=== PATIENT | male | born 1980 | race Two or more races ===

== ENCOUNTER 2025-06-19 21:48 | Emergency (ER) | payer MEDICAID, OTHER ==
[~2025-06-19] VITALS: Ht 167.6 cm; Wt 88.6 kg
[2025-06-19 21:50] VITALS: BP 129/92; PULSE 78; RESP 16; TEMP 98.9; O2SAT 99
--- NOTE | 2025-06-19 22:07 | ED.PDOC ---
Eye-HPI HPI Comments PT PRESENTED TO ED CC LEFT EYE BLEEDING. PT STATES HE WOKE UP LIKE THIS IN THE AM. PT DENIES CHAGES IN VISION, NO PAIN, NO TRAUMA. PT A&OX4, GCS 15, AMBULATORY ON HIS OWN. PMH: DENIES Chief Complaint: Eye Problem Time Seen by MD: 22:00 Reviewed Notes: Nurses Notes, Medications, Allergies Allergies: Coded Allergies: NO KNOWN ALLERGIES (Unverified , 06/19/25) Information Source: Patient Mode of Arrival: Ambulatory Past Medical History PAST MEDICAL HISTORY: Denies Surgical History: Denies all surgeries Family History Family History: Reviewed,noncontributory to illness Social History Smoker: Non-Smoker Alcohol: Denies ETOH Use Drugs: Denies Drug Use All Other Systems: Reviewed and Negative (see hpi ) Physical Exam General Appearance: No Apparent Distress, Normal HEENT: Pharynx Normal, TMs Normal, Other (Subconjunctival hemorrhage left eye right corner. ) Neck: Full Range of Motion, Non-Tender Respiratory: Lungs Clear, No Respiratory Distress, Normal Breath Sounds Cardiovascular: No Murmur, Normal Peripheral Pulses, Regular Rate/Rhythm Breast Exam: Deferred Gastrointestinal: Non Tender, Soft Genitalia: Deferred Pelvic: Deferred Rectal: Deferred Extremities: Normal range of motion Musculoskeletal : Apperance: Normal Neurologic: Alert, No Motor Deficits, Normal Affect, Normal Mood, No Sensory Deficits Cerebellar Function: Normal Reflexes: NOT DONE Skin: Dry, Normal Color, Warm Lymphatic: No Adenopathy Was a procedure done? Was a procedure done?: Yes Sedation Sedation?: No Informed consent obtained: Yes Other Procedure Procedure Wood's lamp Indication Subconjunctival hemorrhage left eye Anesthetic Tetracaine 0.1% Prep Fluorescein 1 mg Success No noted abrasions, lacerations, globe hemorrhage, corneal ulcerations or noted foreign bodies. Informed consent obtained: Yes Risks, benefits, and alternati: Yes Notes Patient tolerated well EENT DIFF Eye: Chalazion, Conjunctivitis, Allergic, Bacterial, Chlamydial, Viral, Corneal Ulceration, Foreign Body-Conjunctiva, Foreign Body-Corneal, Foreign Body- Intraocular, Foreign Body-Lid, Glaucoma, Globe Rupture, Hordeolum (stye), Iritis/Uveitis, Orbital Cellulits, Periorbital Cellulits, Retinal Artery Occlusion, Retinal Vein Occlusion, Subconjunctival Hemorrhag X-Ray, Labs, Meds, VS Vital Signs Date Time Temp Pulse Resp B/P (MAP) Pulse Ox O2 Delivery O2 Flow Rate FiO2 06/19/25 21:50 98.9 78 16 129/92 99 98.9 X-Ray, Labs, Meds, VS Comment Patient normotensive, admits to no blood thinners or alcohol use reports no trauma or vomiting in the past day or two. Likely spontaneous. Advised to follow up Ophthalmology in 2-3 days advised to return to the ER for sudden onset of change in vision or any concerning symptoms. Patient indicates understanding and agrees with discharge plan of care. Time of 1ST Reevaluation: 22:07 Reevaluation 1ST: Unchanged Time of 2ND Reevaluation: 22:30 Patient Education/Counseling: Diagnosis, Treatment, Prognosis, Need For Follow Up Family Education/Counseling: No Family Present SEPSIS Sepsis Screen Date sepsis recognized/suspect: Jun 19, 2025 Time Sepsis recognized/suspect: 2149 Recent Procedure: No On Antibiotic Therapy: No Respiratory Rate >20: No Heart Rate >90: No Temp<36 C (96.8 F) or >38.3 C: No SBP <90 or MAP <65 mmHG: No New Acute Mental Status Change: No Is the patient on CPAP, BIPAP,: No Physician Orders Molina Lamp (06/19/25 ) Vital Signs Date Time Temp Pulse Resp B/P (MAP) Pulse Ox O2 Delivery O2 Flow Rate FiO2 06/19/25 21:50 98.9 78 16 129/92 99 98.9 Departure 1 Departure Time of Disposition: 22:32 Impression: Primary Impression: Subconjunctival hemorrhage Qualified Codes: H11.32 - Conjunctival hemorrhage, left eye Disposition: HOME / SELF CARE / HOMELESS Condition: Stable Discharged With: Self Critical Care Note Critical Care Time?: No Stability Stability form required: MIA Michael Jun 19, 2025 22:07
[2025-06-19] MEDS: FLUORESCEIN SOD OPTH TEST STRIP LEFTEYE ONE (22:28)
[2025-06-19] MEDS: TETRACAINE HCL 0.5% OPTH(EYE) SOLN 4ML LEFTEYE ONE (22:28)
== END 2025-06-19 22:47 | disposition home or self-care (01) ==
LOC: ER 21:52
DX: H11.32 Conjunctival hemorrhage, left eye (principal)